=== PATIENT | female | born 1995 | race African-American/Black ===

== ENCOUNTER 2018-01-19 19:08 | Emergency (ER) | payer OTHER ==
[~2018-01-19] VITALS: Ht 149.9 cm; Wt 67.0 kg
[2018-01-19 19:16] VITALS: BP 113/69; PULSE 71; RESP 18; TEMP 98.6; O2SAT 100
[2018-01-19] MEDS ORDERED: KETOROLAC TROMETHAMINE 30 MG/ML (IVP) VIAL IV PUSH ONE (19:30)
[2018-01-19] MEDS ORDERED: ONDANSETRON ODT 4 MG TAB PO ONE (19:30)
[2018-01-19] MEDS ORDERED: MORPHINE SULFATE 4 MG/ML INJ IV PUSH ONE (19:30)
--- NOTE | 2018-01-19 19:31 | PD ---
HPI Chief Complaint: Abdominal Pain Time Seen by Provider: 19:20 Travel History International Travel<30 days: No Contact w/Intl Traveler<30days: No Traveled to known affect area: No History of Present Illness HPI This is a 22-year-old female who presents for evaluation of abdominal pain. Symptoms started today at 1 PM. The pain is sharp, intermittent, localized to the mainly right lower quadrant region, less so on the left lower quadrant. She reports that she had similar pain 5 days ago which went away on its own. She reports that she underwent an elective surgical to terminate a 15 week . This was on December 31. This was performed at [facility] in [place]. She reports that she has had intermittent vaginal bleeding since then but none currently. She reports mild nausea. Denies vomiting, diarrhea, constipation, dysuria, unusual vaginal discharge, flank pain , fevers or chills. She is not using any medication for symptom relief. Patient reports that she lives in [place], is currently visiting family over the weekend. No other complaints. [facility] Past Medical History Medical History: Denies Significant Hx Diminished Hearing: No Tetanus Vaccination: < 5 Years Influenza Vaccination: No ?: Not LMP: 2 weeks ago : 4 Para: 2 Miscarriage: 1 : 1 Past Surgical History Surgical History: No Previous Surgery Social History Alcohol Use: No Tobacco Use: No Substance Use: No Allergies-Medications (Allergen,Severity, Reaction): Coded Allergies: No Known Allergies (Unverified , 01/19/18) Review of Systems Except as stated in HPI: all other systems reviewed are Neg Physical Exam Narrative GENERAL: Well-developed well-nourished female no acute distress SKIN: Warm and dry. HEAD: Atraumatic. Normocephalic. EYES: Pupils equal and round. No scleral icterus. No injection or drainage. ENT: No nasal bleeding or discharge. Mucous membranes pink and moist. NECK: Trachea midline. No JVD. CARDIOVASCULAR: Regular rate and rhythm. No murmur appreciated. RESPIRATORY: No accessory muscle use. Clear to auscultation. Breath sounds equal bilaterally. GASTROINTESTINAL: Abdomen soft, mild right and left lower quadrant tenderness without guarding. There is no CVA tenderness. MUSCULOSKELETAL: No obvious deformities. No clubbing. No cyanosis. No edema. NEUROLOGICAL: Awake and alert. No obvious cranial nerve deficits. Motor grossly within normal limits. Normal speech. Data Data Last Documented VS Vital Signs Date Time Temp Pulse Resp B/P (MAP) Pulse Ox O2 Delivery O2 Flow Rate FiO2 01/19/18 19:58 16 01/19/18 19:16 98.6 71 113/69 (84) 100 Orders Orders Complete Blood Count With Diff (01/19/18 19:27) Comprehensive Metabolic Panel (01/19/18:) Urinalysis - C+S If Indicated (01/19/18:) Iv Access Insert/Monitor (01/19/18:) Ondansetron Odt (Zofran Odt) (01/19/18 19:30) Us Pelvis Comp W Doppler (01/19/18:) Ketorolac Inj (Toradol Inj) (01/19/18 19:30) Morphine Inj (Morphine Inj) (01/19/18 19:30) Lipase (01/19/18:) Ed Discharge Order (01/19/18 20:40) Labs Laboratory Tests Test 01/19/18 19:40 White Blood Count 7.6 TH/MM3 Red Blood Count 4.67 MIL/MM3 Hemoglobin 13.2 GM/DL Hematocrit 41.0 % Mean Corpuscular Volume 87.8 FL Mean Corpuscular Hemoglobin 28.4 PG Mean Corpuscular Hemoglobin Concent 32.3 % Red Cell Distribution Width 14.9 % Platelet Count 218 TH/MM3 Mean Platelet Volume 9.8 FL Neutrophils (%) (Auto) 68.1 % Lymphocytes (%) (Auto) 25.1 % Monocytes (%) (Auto) 4.9 % Eosinophils (%) (Auto) 1.4 % Basophils (%) (Auto) 0.5 % Neutrophils # (Auto) 5.1 TH/MM3 Lymphocytes # (Auto) 1.9 TH/MM3 Monocytes # (Auto) 0.4 TH/MM3 Eosinophils # (Auto) 0.1 TH/MM3 Basophils # (Auto) 0.0 TH/MM3 CBC Comment DIFF FINAL Differential Comment Urine Color YELLOW Urine Turbidity CLEAR Urine pH 6.5 Urine Specific [place] 1.024 Urine Protein NEG mg/dL Urine Glucose (UA) NEG mg/dL Urine Ketones NEG mg/dL Urine Occult Blood NEG Urine Nitrite NEG Urine Bilirubin NEG Urine Urobilinogen LESS THAN 2.0 MG/DL Urine Leukocyte Esterase TRACE Urine RBC LESS THAN 1 /hpf Urine WBC 2 /hpf Urine Squamous Epithelial Cells 4 /hpf Urine Mucus FEW /lpf Microscopic Urinalysis Comment CULT NOT INDICATED Blood Urea Nitrogen 6 MG/DL Creatinine 0.80 MG/DL Random Glucose 100 MG/DL Total Protein 7.2 GM/DL Albumin 3.7 GM/DL Calcium Level 9.2 MG/DL Alkaline Phosphatase 55 U/L Aspartate Amino Transf (AST/SGOT) 19 U/L Alanine Aminotransferase (ALT/SGPT) 14 U/L Total Bilirubin 0.3 MG/DL Sodium Level 141 MEQ/L Potassium Level 3.6 MEQ/L Chloride Level 104 MEQ/L Carbon Dioxide Level 26.8 MEQ/L Anion Gap 10 MEQ/L Estimat Glomerular Filtration Rate 109 ML/MIN Lipase 61 U/L MDM Medical Decision Making Medical Screen Exam Complete: Yes Emergency Medical Condition: Yes Medical Record Reviewed: Yes Differential Diagnosis Retained products of conception, endometritis, appendicitis, ovarian torsion, UTI Narrative Course An IV will be established. Basic lab work, urinalysis have been ordered. Pelvic ultrasound has been ordered. The patient will be given Zofran, Toradol and morphine. 2039: The nurses informed me that the patient has a family emergency and has to leave prior to all of the tests being resulted, she is signing out AMA. The tests that are available revealing a right ovarian cyst with no evidence of torsion on ultrasound. CBC is unremarkable and urinalysis is unremarkable. CMP and lipase are pending. She reports that currently she is asymptomatic. Given her lack of leukocytosis, current no pain, I think it is highly unlikely that this is appendicitis but I did discuss signs and symptoms that would warrant returning to the emergency room. She understands that the CMP has not yet resulted. Diagnosis Primary Impression: Abdominal pain Additional Impression: Left against medical advice Additional Instructions: As discussed, return at any time as needed if you develop new or worsening symptoms. Med/Other Pt SpecificInfo: No Change to Meds Disposition: 07 AGAINST MEDICAL ADVICE Condition: Stable Francis Salter Jan 19, 2018 19:31
[2018-01-19 19:58] VITALS: RESP 16
[2018-01-19 20:14] LABS: BILIRUBIN, URINE NEG (NEG); BLOOD, URINE NEG (NEG); GLUCOSE,URINE NEG (NEG); KETONE, URINE NEG (NEG); MUCUS URINE FEW /lpf (OCC); NITRITE,URINE NEG (NEG); PH, URINE 6.5 (5.0-8.5); SQUAMOUS EPITHELIAL CELL URINE 4 /hpf (0-5); URINE COLOR YELLOW (YELLW/STRAW); URINE LEUKOCYTE ESTERASE TRACE (NEG)
--- NOTE | 2018-01-19 20:27 | RADRPT ---
EXAM DATE: 01/19/2018 8:14 PM EDT AGE/SEX: 22 years / Female INDICATIONS: Pelvic pain. CLINICAL DATA: This is the patient's initial encounter. Patient reports that signs and symptoms have been present for 2 days and indicates a pain score of 6/10. MEDICAL/SURGICAL HISTORY: . Pelvic pain. . . COMPARISON: No prior exams available for comparison. MEASUREMENTS: Uterus:__10.1 x 7.1 x 5.7 cm Endometrial Stripe:__9 mm Right Ovary:__ 4.0 x 1.6 x 2.2 cm Left Ovary:__ 3.2 x 2.4 x 1.2 cm FINDINGS: Uterus: Uterus is mildly heterogeneous without discrete mass. Endometrial stripe thickness is 9 mm. Right Ovary: As measured above with 1.7 cm right ovarian cyst. Left Ovary: Unremarkable Other: Small amount of free fluid in the cul-de-sac. CONCLUSION: 1. 1.7 cm right ovarian cyst. Positive flow to both ovaries without evidence for torsion. Small amou nt of free fluid. Electronically signed by: Obi Corral MD 01/19/2018 8:26 PM EDT
[2018-01-19 20:32] LABS: AUTOMATED NEUTROPHIL # 5.1 TH/MM3 (1.8-7.7); BASOPHIL % 0.5 % (0.0-2.0); EOSINOPHIL # 0.1 TH/MM3 (0-0.4); EOSINOPHIL % 1.4 % (0.0-4.0); HEMOGLOBIN 13.2 GM/DL (11.6-15.3); LYMPH % 25.1 % (9.0-44.0); LYMPHOCYTE # 1.9 TH/MM3 (1.0-4.8); MEAN CELL VOLUME 87.8 FL (80.0-100.0); MEAN CORPUSCULAR HEMOGLOBIN 28.4 PG (27.0-34.0); MEAN CORPUSCULAR HGB CONC 32.3 % (32.0-36.0); MEAN PLATELET VOLUME 9.8 FL (7.0-11.0); MONO % 4.9 % (0.0-8.0); MONOCYTE # 0.4 TH/MM3 (0-0.9); NEUT % 68.1 % (16.0-70.0); PLATELET COUNT 218 TH/MM3 (150-450); RED BLOOD COUNT 4.67 MIL/MM3 (4.00-5.30); RED CELL DISTRIBUTION WIDTH 14.9 % (11.6-17.2); WHITE BLOOD COUNT 7.6 TH/MM3 (4.0-11.0)
[2018-01-19 20:42] LABS: ALBUMIN 3.7 GM/DL (3.4-5.0); AST (GOT) 19 U/L (15-37); BICARBONATE 26.8 MEQ/L (21.0-32.0); BLOOD UREA NITROGEN 6 MG/DL (7-18); CALCIUM 9.2 MG/DL (8.5-10.1); CHLORIDE 104 MEQ/L (98-107); GLOMERULAR FILTRATION RATE 109 ML/MIN (>89); GLUCOSE,RANDOM 100 MG/DL (74-106); SODIUM (NA) 141 MEQ/L (136-145)
--- NOTE | 2018-01-19 20:42 | PD ---
Physical Exam Date Seen by Provider: Jan 19, 2018 Narrative This patient presents for evaluation of lower abdominal pain following an elective AB. Data Data Last Documented VS Vital Signs Date Time Temp Pulse Resp B/P (MAP) Pulse Ox O2 Delivery O2 Flow Rate FiO2 01/19/18 19:58 16 01/19/18 19:16 98.6 71 113/69 (84) 100 Orders Orders Complete Blood Count With Diff (01/19/18:) Comprehensive Metabolic Panel (01/19/18:) Urinalysis - C+S If Indicated (01/19/18:) Iv Access Insert/Monitor (01/19/18:) Ondansetron Odt (Zofran Odt) (01/19/18:30) Us Pelvis Comp W Doppler (01/19/18:) Ketorolac Inj (Toradol Inj) (01/19/18 19:30) Morphine Inj (Morphine Inj) (01/19/18:30) Lipase (01/19/18:) Ed Discharge Order (01/19/18 20:40) Labs Laboratory Tests Test 01/19/18 19:40 White Blood Count 7.6 TH/MM3 Red Blood Count 4.67 MIL/MM3 Hemoglobin 13.2 GM/DL Hematocrit 41.0 % Mean Corpuscular Volume 87.8 FL Mean Corpuscular Hemoglobin 28.4 PG Mean Corpuscular Hemoglobin Concent 32.3 % Red Cell Distribution Width 14.9 % Platelet Count 218 TH/MM3 Mean Platelet Volume 9.8 FL Neutrophils (%) (Auto) 68.1 % Lymphocytes (%) (Auto) 25.1 % Monocytes (%) (Auto) 4.9 % Eosinophils (%) (Auto) 1.4 % Basophils (%) (Auto) 0.5 % Neutrophils # (Auto) 5.1 TH/MM3 Lymphocytes # (Auto) 1.9 TH/MM3 Monocytes # (Auto) 0.4 TH/MM3 Eosinophils # (Auto) 0.1 TH/MM3 Basophils # (Auto) 0.0 TH/MM3 CBC Comment DIFF FINAL Differential Comment Urine Color YELLOW Urine Turbidity CLEAR Urine pH 6.5 Urine Specific [place] 1.024 Urine Protein NEG mg/dL Urine Glucose (UA) NEG mg/dL Urine Ketones NEG mg/dL Urine Occult Blood NEG Urine Nitrite NEG Urine Bilirubin NEG Urine Urobilinogen LESS THAN 2.0 MG/DL Urine Leukocyte Esterase TRACE Urine RBC LESS THAN 1 /hpf Urine WBC 2 /hpf Urine Squamous Epithelial Cells 4 /hpf Urine Mucus FEW /lpf Microscopic Urinalysis Comment CULT NOT INDICATED MDM Supervised Visit with THANIA: Yes Narrative Course I, Dr. Mercedes, have reviewed the advance practice practitioner's documentation and am in agreement, met with the patient face to face, made the diagnosis, and the medical decision making was done by me. *My assessment and Findings: Patient does not appear to be in any acute distress. Her abdomen is soft. She does have tenderness in the right suprapubic area. CBC Diagram 01/19/18 19:40 Last Impressions Pelvis Ultrasound 01/19/181926 Signed Impressions: CONCLUSION: 1. 1.7 cm right ovarian cyst. Positive flow to both ovaries without evidence f or torsion. Small amount of free fluid. Please see Francis Salter PA-C's note for a more detailed H&P, final diagnosis and disposition Omayra Mercedes MD Jan 19, 2018 20:42
[2018-01-19 20:43] LABS: ALT (GPT) 14 U/L (10-53)
[2018-01-19 20:46] LABS: ALKALINE PHOSPHATASE 55 U/L (45-117); TOTAL BILIRUBIN ADULT 0.3 MG/DL (0.2-1.0); TOTAL PROTEIN 7.2 GM/DL (6.4-8.2)
== END 2018-01-19 20:45 | disposition left against medical advice (07) ==
LOC: NEPD 19:08
DX: R10.31 Right lower quadrant pain (principal); N83.201 Unspecified ovarian cyst, right side; Z53.29 Procedure and treatment not carried out because of patient's decision for other reasons
CPT/HCPCS: 76856; 80053; 81001; 83690; 85025; 93975; 96374; 96375; 99284; J1885; J2270